=== PATIENT | male | born 1985 | race Two or more races ===

== ENCOUNTER 2021-09-27 13:30 | Emergency (ER) | payer OTHER | END 2021-09-27 15:51 | disposition home or self-care (01) | LOC: LL.ED 13:30 | DX: T54.3X1A Toxic effect of corrosive alkalis and alkali-like substances, accidental (unintentional), initial encounter (principal); T24.502A Corrosion of first degree of unspecified site of left lower limb, except ankle and foot, initial encounter; T24.501A Corrosion of first degree of unspecified site of right lower limb, except ankle and foot, initial encounter; Z88.0 Allergy status to penicillin | CPT/HCPCS: 99283 ==